=== PATIENT | female | born 1945 | race Caucasian/White ===

== ENCOUNTER 2017-04-04 18:01 | Inpatient (IN) | payer MEDICARE ==
[2017-04-04] MEDS ORDERED: Ondansetron INJ* 2 MG/ML VIAL IV ONE (18:49)
[2017-04-04] MEDS ORDERED: Morphine INJ* 4 MG/ML 1 ML SYRINGE IV ONE (18:49)
[2017-04-04] MEDS ORDERED: NS 0.9% 1000 ML* 1,000 ML IV ONE (18:49)
[2017-04-04 19:10] LABS: Hematocrit 37 % (35-47); Hemoglobin 11.9 g/dl (12.0-16.0); Mean Corpuscular HGB Conc 33 g/dl (31-36); Mean Corpuscular Hemoglobin 29 pg (27-31); Mean Corpuscular Volume 90 fL (80-97); Mean Platelet Volume 8 um3 (7.4-10.4); Red Blood Count 4.06 10^6/ul (4.0-5.4); Red Cell Distribution Width 13 % (10.5-15); White Blood Count 9.7 10^3/ul (3.5-10.8)
[2017-04-04 19:25] LABS: Albumin 3.8 g/dL (3.2-5.2); BUN/Creatinine Ratio 20.4 (8-20); Calcium 9.2 mg/dL (8.6-10.3); EGFR African American 76.9 (>60); EGFR Non-African American 59.8 (>60); Globulin 2.6 g/dL (2-4); Potassium 3.7 mmol/L (3.5-5.0); Total Bilirubin 0.3 mg/dL (0.2-1.0); Total Protein 6.4 g/dL (6.4-8.9)
[2017-04-04] MEDS ORDERED: Morphine INJ* 2 MG/ML 1 ML SYRINGE IV PRN (20:27)
--- NOTE | 2017-04-04 20:41 | RAD ---
Patient: Fall, head injury. CT of the brain was performed without IV contrast. No prior study is available for comparison. Ventricular structures are midline. No midline shift is noted. The extra-axial spaces are unremarkable. There is no evidence of intracranial mass or hemorrhage. No other high or low density lesions are identified. Mastoid air cells and paranasal sinuses are otherwise unremarkable. IMPRESSION: There is no evidence of intracranial mass or hemorrhage present.
--- NOTE | 2017-04-04 20:47 | RAD ---
Indication: Right knee pain. 2 views of the right knee demonstrates right knee replacement in satisfactory position. No definite fractures identified although evaluation is suboptimal. IMPRESSION: Right knee replacement in satisfactory position.
--- NOTE | 2017-04-04 20:47 | RAD ---
Indication: Right hip pain after fall. Single view of the pelvis demonstrates a fracture through the neck of the right femur with overriding and foreshortening of the fracture fragments. Pelvic ring is otherwise intact. Left hip and femur appear intact. IMPRESSION: Fracture neck of the right femur with overriding of the fracture fragments.
--- NOTE | 2017-04-04 20:48 | RAD ---
Indication: Preop chest x-ray. Single frontal view of the chest performed at 2010 hours was reviewed. No prior study is available. No mediastinal shift is noted. Heart is of normal size and configuration. Lung singletary appear clear. IMPRESSION: NO ACTIVE CARDIOPULMONARY DISEASE IS NOTED.
--- NOTE | 2017-04-04 21:02 | ED ---
Dayo Diaz Salem, scribed for Bailey Rachel MD on 04/04/17 at 1928 . Lower Extremity - HPI Summary HPI Summary: Patient is a 71 y/o F who presents to the ED s/p a fall earlier today. She states that she tripped over uneven sidewalk while walking her dog and landed on her right side. She also states that she mildly hit her head. She reports right hip pain, but no other sx. Pt recently had a right knee replacement. - History of Current Complaint Chief Complaint: EDExtremityLower Stated Complaint: R HIP PAIN Time Seen by Provider: 04/04/17 18:21 Hx Obtained From: Patient Mechanism Of Injury: Fall From A Standing Position Onset of Pain: Immediate Onset/Duration: Hours Severity Initially: Moderate Severity Currently: Moderate Pain Intensity: 6 Pain Scale Used: 0-10 Numeric Timing: Constant Location: Is Discrete @ - Right hip. Character Of Pain: Sharp Associated Signs And Symptoms: Positive: Negative Aggravating Factor(s): Ambulation, Movement Alleviating Factor(s): Rest Able to Bear Weight: No - Allergies/Home Medications Allergies/Adverse Reactions: Allergies Allergy/AdvReac Type Severity Reaction Status Date / Time No Known Allergies Allergy Verified 04/04/17 19:11 PMH/Surg Hx/FS Hx/Imm Hx Previously Healthy: Yes - Surgical History Surgery Procedure, Year, and Place: None. Infectious Disease History: No Infectious Disease History: Denies: Traveled Outside the [place] in Last 30 Days - Family History Known Family History: Negative: Hypertension - Social History Alcohol Use: Rare Substance Use Type: Reports: None Smoking Status (MU): Never Smoked Tobacco Review of Systems Negative: Fever Positive: Other - Right hip pain. All Other Systems Reviewed And Are Negative: Yes Physical Exam Triage Information Reviewed: Yes Vital Signs On Initial Exam: Initial Vitals Temp Pulse Resp BP Pulse Ox 97.7 F 87 20 131/74 98 04/04/17 18:02 04/04/17 18:02 04/04/17 18:02 04/04/17 18:02 04/04/17 18:02 Vital Signs Reviewed: Yes Appearance: Positive: Well-Appearing Skin: Positive: Warm, Skin Color Reflects Adequate Perfusion, Dry Eyes: Positive: EOMI, JENNA Neck: Positive: Supple, Nontender Respiratory/Lung Sounds: Positive: Clear to Auscultation, Breath Sounds Present. Negative: Rales, Rhonchi, Wheezes Cardiovascular: Positive: RRR. Negative: Murmur, Rub Abdomen Description: Positive: Nontender, Soft. Negative: Distended, Guarding Musculoskeletal: Positive: Other - Hip externally rotated. Tender to proximal femur. Neurological: Positive: Sensory/Motor Intact, Alert, Oriented to Person Place, Time, CN Intact II-III Psychiatric: Positive: Affect/Mood Appropriate - [place] Coma Scale Coma Scale Total: 15 Diagnostics - Vital Signs Vital Signs Temp Pulse Resp BP Pulse Ox 04/04/17 19:11 18 04/04/17 18:09 84 98 04/04/17 18:02 97.7 F 87 20 131/74 98 - Laboratory Lab Results: Lab Results 04/04/17 04/04/17 Range/Units 19:00 19:00 WBC 9.7 (3.5-10.8) 10^3/ul RBC 4.06 (4.0-5.4) 10^6/ul Hgb 11.9 L (12.0-16.0) g/dl Hct 37 (35-47) % MCV 90 (80-97) fL MCH 29 (27-31) pg MCHC 33 (31-36) g/dl RDW 13 (10.5-15) % Plt Count 192 (150-450) 10^3/ul MPV 8 (7.4-10.4) um3 Neut % (Auto) 76.8 (38-83) % Lymph % (Auto) 15.8 L (25-47) % [place] % (Auto) 5.7 (1-9) % Eos % (Auto) 1.1 (0-6) % Baso % (Auto) 0.6 (0-2) % Absolute Neuts (auto) 7.5 (1.5-7.7) 10^3/ul Absolute Lymphs (auto) 1.5 (1.0-4.8) 10^3/ul Absolute Monos (auto) 0.6 (0-0.8) 10^3/ul Absolute Eos (auto) 0.1 (0-0.6) 10^3/ul Absolute Basos (auto) 0.1 (0-0.2) 10^3/ul Absolute Nucleated RBC 0 10^3/ul Nucleated RBC % 0 INR (Anticoag Therapy) 0.95 (0.89-1.11) Result Diagrams: 04/04/17 19:00 04/04/17 19:00 Lab Statement: Any lab studies that have been ordered have been reviewed, and results considered in the medical decision making process. - Radiology FEMUR RIGHT Radiology Interpretation Completed By: Radiologist - IMPRESSION: see EMR pending KNEE RIGHT Radiology Interpretation Completed By: Radiologist - IMPRESSION: Right knee replacement in satisfactory position. PELVIS RIGHT Radiology Interpretation Completed By: Radiologist - IMPRESSION: Fracture neck of the right femur with overriding of the fracture fragments. CXR Radiology Interpretation Completed By: Radiologist - IMPRESSION: NO ACTIVE CARDIOPULMONARY DISEASE IS NOTED. - CT BRAIN CT Interpretation Completed By: Radiologist - IMPRESSION: There is no evidence of intracranial mass or hemorrhage present. - EKG 2021 EKG Interpretation: NSR @ 70 bpm. Nml. Re-Evaluation - Re-Evaluation First Eval Re-Evaluation Time: 20:16 Comment: Discussed imaging results. Lower Extremity Course/Dx - Course Course Of Treatment: 71 yo female with no medical problems with right femoral neck fracture. Case discussed with Dr. Evans who admitted the pt - Diagnoses Provider Diagnoses: Hip fracture, right - Physician Notifications Discussed Care Of Patient With: Juan José Evans Time Discussed With Above Provider: 20:25 Instructed by Provider To: Admit As Inpatient Admit/Transition Orders Completed By ED Provider: Yes Discharge - Discharge Plan Condition: Stable Disposition: ADMITTED TO [facility] Referrals: Non Staff,Doctor [Primary Care Provider] - The documentation as recorded by the Dayo hall Salem accurately reflects the service I personally performed and the decisions made by me, Bailey Rachel MD.
--- NOTE | 2017-04-04 21:41 | RAD ---
Indication: Right femur injury, hip fracture. 2 views of the right femur demonstrates no fracture of the femur other than the known fracture neck of the right. Diaphysis is intact. IMPRESSION: Right femoral neck fracture.
[2017-04-04] MEDS ORDERED: Morphine INJ* 2 MG/ML 1 ML SYRINGE ONE (21:57)
[2017-04-04] MEDS ORDERED: Buffered Lidocaine 0.9% SYRIN* 5 ML/SYR SYRINGE INTRADERM ONE (22:19)
[2017-04-05] MEDS ORDERED: NS 0.9% 1000 ML* 1,000 ML IV SCH
--- NOTE | 2017-04-05 03:18 | CONS ---
CONSULTATION REPORT: DATE OF CONSULTATION: 04/04/17 HISTORY AND PHYSICAL ATTENDING: Juan José Evans MD CHIEF COMPLAINT: Right hip pain. HISTORY OF PRESENT ILLNESS: Briefly, Magdalena Centeno is a 71-year-old otherwise healthy female, who sustained a mechanical fall. She was walking on a side walk and tripped landing on her right side. She also had a recent history of a total knee replacement that was done in December of this year in [facility]. She was here for recovery purposes and is also living close to her daughter. She had a recent right knee replacement in 2017 in [facility]. She was recently moved here to live with her mother and near her daughter who recently graduated from law school. She was walking without any assistive devices with her dog and then she landed awkwardly, she could not weight bear. She was brought to the ER and diagnosed with a displaced femoral neck fracture. She denies any numbness or tingling. No fevers or chills. PAST MEDICAL HISTORY: Negative. PAST SURGICAL HISTORY: Significant for ORIF of ankle and total knee replacement in December 2016 as well as tonsillectomy. MEDICATIONS: None. ALLERGIES: None. SOCIAL HISTORY: She is community ambulator. She denies tobacco and drinks alcohol rarely. She is recovering from a total knee replacement, was going to start riding her bike. She lives with her 92-year-old mother and 3 blocks away from her daughter who recently graduated from law school. FAMILY HISTORY: Negative. She lives with her 92-year-old, otherwise healthy mother. REVIEW OF SYSTEMS: Negative for fevers or chills, numbness, tingling. No chest pain, no shortness of breath. Otherwise, she is a community ambulator. She did have a recent total knee arthroplasty. She has no history of blood clots, problems with anesthesia. PHYSICAL EXAMINATION: General: She is no acute distress. She is well- developed, well-nourished. She is alert and oriented x3. She has pleasant mood and normal affect. EOMI. Chest: Clear to auscultation. Heart: Regular rate and rhythm. Abdomen: Soft. Examination of the right hip demonstrates the skin is intact. There is no erythema or warmth. The leg is externally rotated and shortened. Her examination of the knee demonstrates no effusion, well- healed incisions. Her calf is soft and nontender. She is sensate to light touch about the first dorsal webspace medial, dorsal and plantar foot. She has 2+ PT and DP pulse. She is able to flex and extend her toes. IMAGING: X-rays were reviewed that demonstrates no arthritis. A displaced femoral neck fracture, well positioned knee replacement with no evidence of lucency. Head CT was done that was found to be negative. LABORATORY DATA: White blood cell count 9.7, hematocrit 37, platelet count 192. INR 0.95. Sodium is 139, potassium 3.7, chloride 106, carbon dioxide 25, BUN 19, creatinine 0.93, glucose 134, calcium 9.2. AST and ALT are within normal limits. ASSESSMENT AND PLAN: She has a displaced femoral neck fracture. She is 71 years old, otherwise healthy female. She has no previous history of hip pain, but she is very young. Her mother is 92 years old and she is very healthy. We talked about options. I did mention that total hip replacement is an option especially she had previous hip pain. I am concerned because her mother is still alive and healthy and there is an option of treating her with a total hip replacement. I did talk to her about doing a right hip hemiarthroplasty, but I am going to confirm with my partners to find out if they would be willing to do a total hip. We reviewed the risks and benefits of surgery versus nonoperative treatment. Risks included but are not limited to bleeding, infection, damage to nerves, vessels, surrounding structures, wound not healing, persistent pain, need for further surgery, risks of anesthesia, scarring, persistent pain, risk of DVT, risks of anesthesia, risk of dislocation, fracture and need for further surgery. We will plan for hemiarthroplasty in the morning unless the patient would like to proceed with a total hip replacement. [id number]/[facility] #: [id number] MTDD
[2017-04-05] MEDS ORDERED: ceFAZolin 2 GM PREMIX(*) 2 GM/50 ML BAG IVPB ONE (07:00)
--- NOTE | 2017-04-05 09:02 | PN ---
Progress Note - Progress Note Note: pt seen in prean. comfortable. family at bedside. no complaints overnight. Temp Pulse Resp BP Pulse Ox 98.6 F 55 15 111/58 100 04/05/17 07:29 04/05/17 07:29 04/05/17 07:29 04/05/17 07:29 04/05/17 07:29 NAD. AAOx3. comfortable. RLE: skin intact. leg externally rotated and shortened. SILT grossly distally. 2+ PT pulse. calf soft, nontender. Laboratory Results - last 24 hr 04/04/17 04/04/17 04/04/17 19:00 19:00 19:00 WBC 9.7 RBC 4.06 Hgb 11.9 L Hct 37 MCV 90 MCH 29 MCHC 33 RDW 13 Plt Count 192 MPV 8 Neut % (Auto) 76.8 Lymph % (Auto) 15.8 L [place] % (Auto) 5.7 Eos % (Auto) 1.1 Baso % (Auto) 0.6 Absolute Neuts (auto) 7.5 Absolute Lymphs (auto) 1.5 Absolute Monos (auto) 0.6 Absolute Eos (auto) 0.1 Absolute Basos (auto) 0.1 Absolute Nucleated RBC 0 Nucleated RBC % 0 INR (Anticoag Therapy) 0.95 Sodium 139 Potassium 3.7 Chloride 106 Carbon Dioxide 25 Anion Gap 8 BUN 19 Creatinine 0.93 Est GFR ( Amer) 76.9 Est GFR (Non-Af Amer) 59.8 BUN/Creatinine Ratio 20.4 H Glucose 134 H Calcium 9.2 Total Bilirubin 0.30 AST 19 ALT 16 Alkaline Phosphatase 46 Total Protein 6.4 Albumin 3.8 Globulin 2.6 Albumin/Globulin Ratio 1.5 Blood Type Antibody Screen 04/04/17 19:00 WBC RBC Hgb Hct MCV MCH MCHC RDW Plt Count MPV Neut % (Auto) Lymph % (Auto) [place] % (Auto) Eos % (Auto) Baso % (Auto) Absolute Neuts (auto) Absolute Lymphs (auto) Absolute Monos (auto) Absolute Eos (auto) Absolute Basos (auto) Absolute Nucleated RBC Nucleated RBC % INR (Anticoag Therapy) Sodium Potassium Chloride Carbon Dioxide Anion Gap BUN Creatinine Est GFR ( Amer) Est GFR (Non-Af Amer) BUN/Creatinine Ratio Glucose Calcium Total Bilirubin AST ALT Alkaline Phosphatase Total Protein Albumin Globulin Albumin/Globulin Ratio Blood Type AB Negative Antibody Screen Negative A/P 71 yo F with displaced right femoral neck fracture bedrest npo for OR plan for right hip hemiarthroplasty today ancef oncall to OR.
[2017-04-05] MEDS ORDERED: Bupivacaine 0.5% SDV PF* 30 ML VIAL ONE ×2 (09:47→09:53)
[2017-04-05] MEDS ORDERED: fentaNYL* 50 MCG/ML 2 ML VIAL (100 MCG VIAL) ONE (09:51)
[2017-04-05] MEDS ORDERED: KETAMINE HCL* 50 MG/ML 10 ML VIAL ONE (09:51)
[2017-04-05] MEDS ORDERED: Midazolam* 1 MG/ML 2 ML VIAL (2 MG) ONE ×2 (09:51→10:24)
[2017-04-05] MEDS ORDERED: Morphine PF AMP (0.5MG/ML)* 5 MG/10 ML AMP ONE (09:51)
[2017-04-05] MEDS ORDERED: diPHENhydraMINE IV* 50 MG/ML 1 ml VIAL (BENADRYL) ONE (09:53)
[2017-04-05] MEDS ORDERED: Famotidine IV* 10 MG/ML 2 ML (20 mg) ONE (10:32)
[2017-04-05] MEDS ORDERED: Lidocaine 2% PF * 5 ML VIAL ONE (10:32)
[2017-04-05] MEDS ORDERED: Dexamethasone IV* 4 MG/ML 1 ML (4 MG) ONE (10:32)
[2017-04-05] MEDS ORDERED: Propofol* 10 MG/ML 20 ML BTL IV PUSH ONE (10:32)
[2017-04-05] MEDS ORDERED: EPHEDrine (Pressors)* 50 MG/ML VIAL ONE (10:46)
[2017-04-05] MEDS ORDERED: Hetastarch in NS* 500 ML IV ONE (10:57)
[2017-04-05] MEDS ORDERED: Ondansetron INJ* 2 MG/ML VIAL IV PRN ×2 (11:30→11:35)
[2017-04-05] MEDS ORDERED: DiMENhydriNATE IV* 50 MG/ML VIAL IV PUSH PRN (11:30)
[2017-04-05] MEDS ORDERED: fentaNYL* 50 MCG/ML 2 ML VIAL (100 MCG VIAL) IV PRN (11:30)
[2017-04-05] MEDS ORDERED: PROCHLORPERAZINE INJ 5 MG/ML 2 ML VIAL IV PRN (11:35)
[2017-04-05] MEDS ORDERED: Scopolomine PATCH Remove* 1 NOTE MISC PATCH OFF PRN (11:35)
[2017-04-05] MEDS ORDERED: diPHENhydraMINE IV* 50 MG/ML 1 ml VIAL (BENADRYL) IV PRN (11:35)
[2017-04-05] MEDS ORDERED: Nalbuphine* 20 MG/ML 1 ML VIAL IV PRN (11:35)
[2017-04-05] MEDS ORDERED: Scopolamine 1.5 mg* PATCH TRANSDERM PRN (11:35)
[2017-04-05] MEDS ORDERED: Naloxone* 0.4 MG/ML 1 ML VIAL IV PRN (11:35)
[2017-04-05] MEDS ORDERED: Ketorolac INJ* 30 MG/ML 1 ML VIAL ONE (12:02)
--- NOTE | 2017-04-05 14:02 | RAD ---
Indication: Right femoral neck fracture. 2 views of the right femur and AP view of the pelvis demonstrates right hip replacement in satisfactory position. Pelvic ring is intact. IMPRESSION: Right hip replacement in satisfactory position.
--- NOTE | 2017-04-05 14:07 | PN ---
Progress Note - Progress Note Note: postop note: pt seen and examined. comfortable. denies significant pain Temp Pulse Resp BP Pulse Ox 99.0 F 83 16 113/64 96 04/05/17 12:46 04/05/17 14:02 04/05/17 14:02 04/05/17 14:02 04/05/17 14:02 NAD. RLE: dressing in place. calf soft. Sensate to light touch about 1st dws, medial, lateral, plantar, and dorsal foot. 2+ PT pulse. A/P POD#0 from R hip lianne. Doing well. Xrays reviewed and are acceptable. DVT ppx to begin tomorrow post op abx. dispo pending. WBAT d/c rafaela POD1
[2017-04-05] MEDS: Acetaminophen TAB* 325 MG PO SCH ×3 (15:53→20:06)
[2017-04-05] MEDS: ceFAZolin VIAL(*) 1 GM in NS 0.9% 50 ML* 50 ML IVPB SCH ×2 (16:32→22:19)
[2017-04-06] MEDS: Acetaminophen TAB* 325 MG PO SCH (00:08)
--- NOTE | 2017-04-06 03:54 | OP ---
DATE OF SURGERY: 04/05/17 - ROOM #348 DATE OF : 49 ATTENDING SURGEON: Juan José Evans MD ECONOMIC DEVELOPMENT DIRECTOR: JUAN Jamison. An assistant production editor was needed for the entirety of the case to help with positioning, retraction, and was utilized throughout all portions of the case. ANESTHESIOLOGIST: Annie Garzon MD ANESTHESIA: Spinal with monitored anesthesia care. PRE-OP DIAGNOSIS: Right hip displaced femoral neck fracture. POST-OP DIAGNOSIS: Right hip displaced femoral neck fracture. OPERATIVE PROCEDURE: Right hip hemiarthroplasty. COMPLICATIONS: None. ESTIMATED BLOOD LOSS: 200 cc. IMPLANTS USED: Vestal size 47 bipolar head with a size 2.5 Accolade stem. URINE OUTPUT: Per anesthesia records. INDICATIONS: Magdalena Centeno is a 71-year-old female who sustained a mechanical fall last evening. She is otherwise healthy and has no medical problems. She was diagnosed with a displaced femoral neck fracture. After discussion of the risks and benefits, operative versus nonoperative treatment, and the different types of operative treatment; she has elected to proceed with right hip hemiarthroplasty. She has no previous history of right hip pain. She was recently recovered from the right total knee operation. Risks and benefits were discussed at length, which include but were not limited to bleeding, infection, damage to nerves, vessels, surrounding structures, wound nonhealing, persisted pain, need for further surgery; fracture, dislocation, risk of conversion to a total hip, persisting groin pain, DVT, and risk of anesthesia, and she has elected to proceed. DESCRIPTION OF PROCEDURE: The patient was greeted in the preoperative area by the attending surgeon. Correct extremity was marked and consent was confirmed. The patient was then brought back to the operating suite, where she was placed in supine position on the operating table. She was then transferred to the right side, where a spinal was placed by the anesthesiologist. After which she was placed in the left lateral decubitus position with all bony prominences padded. She was secured using the Villanueva device. The right hip and leg was prepped and draped in the usual sterile fashion beginning with chlorhexidine, soap scrub, and alcohol wipe and a final prep with ChloraPrep. After appropriate surgical pause indicating site, side, procedure, and administration of antibiotics; the standard posterior incision was made along the hip. The soft tissues were carefully dissected to expose the facial layer. The facia was then sharply excised and there was abundant bursa that was present. This was carefully swept away using the lap pad. As the bursa was cleared, any excess was removed using electrocautery device. The hip was placed in gentle external rotation and external rotators were identified. It appeared to be partially damaged from the injury. These were then tagged for later closure and these were carefully released with stay sutures placed and tension on the tissue and gentle external rotation of the hip. The neck was then identified. The capsule was then sharply incised what was remaining of it for a later closure as well. The femoral neck fracture was identified. Then with the hip parallel to the ground and exposed pressure of the neck, a neck cut was made approximately at least a centimeter from the end of the lesser trochanter. Once this was made, the excess bone was removed and using the C- elevator, the femur was then placed back on the table and gently moved anteriorly to expose the cup with gentle retraction on the femur. The soft tissue was carefully dissected. The hips was used to expose and the acetabulum was identified. The femoral head was then removed carefully using a cork-screw device. Once this was done, it was taken to back table and measured by the surgical specialist, it was found to be about 46 mm. Excess ligamentum was then removed from the cup. The cup apparently did not appear to have hardly any degenerative changes. The head also had minimal degenerative changes. At this point, different sizing devices were placed and once the appropriate fit was identified, it was found to be size 47 mm with an appropriate amount of shuck, it was chosen. Next, the attention was directed to the femur. With the hip externally rotated and the femoral neck exposed, the excess tissues from the released external rotators were then removed. The box cut guide was used to begin the starting port more laterally. The canal finder was then used to find the canal. The sequential reaming and rasping were done in sequence until a size 2.5 rasp was placed with excellent purchase. At this point, the trial component was brought to the field. The hip was then gently reduced and was found to have a good fit. It was taken through range of motion with no tightness in extension. The hip was brought to 90 degrees and about to 45 degrees of external rotation and it remained stable. The limb lengths were checked through the drapes and found to be acceptable or similar to the other extremity. This was taken through range of motion several times and found to be stable. At this point, the implants were chosen. The hip was gently dislocated. The stem was then checked and found to have a good fit. It was carefully co-planed to make sure there is no excess bone. The trial implants were removed and then final implants were chosen. These were then placed with impaction to have a good fit. The Bipolar head was placed 28 mm and then the 47 mm final head was final head was placed with a good purchase. The hip was then relocated gently and taken through range of motion again and the stability was the same as prior to removal of the trial. The wounds were then copiously irrigated. The drill holes were placed at the trochanter for closure of the previously tagged external rotators and capsule. These were then closed with a good purchase. The wound was copiously irrigated again. The facial area was closed with 0 Vicryl and the wounds were irrigated one last time and the subcutaneous tissue was closed with 2-0 Vicryl and the skin with 3-0 Monocryl. Sterile dressings were applied. The wound was injected with 0.5% Marcaine plain. She was then awoken from anesthesia and placed in abduction pillow. POSTOPERATIVE PLAN: She will be weightbearing as tolerated. She will have to observe hip precautions for approximately 6 weeks. She will be placed on IV antibiotics for 24 hours postoperative. She will be on DVT prophylaxis for 6 weeks postoperatively. I will see the patient back in office in 10 to 14 days and she would like to be in the hospital for another 2 days prior to discharge to other nursing facility or home with services. Postoperative x-rays will be taken in the PACU to check alignment and position. CC: VALERIANO [id number]/[facility] #: [id number] JOCELYNN
[2017-04-06] MEDS: ceFAZolin VIAL(*) 1 GM in NS 0.9% 50 ML* 50 ML IVPB SCH (04:08)
[2017-04-06 06:37] LABS: Hematocrit 26 % (35-47); Hemoglobin 8.8 g/dl (12.0-16.0)
[2017-04-06 06:54] LABS: Albumin 2.5 g/dL (3.2-5.2); BUN/Creatinine Ratio 14.3 (8-20); Calcium 7.8 mg/dL (8.6-10.3); EGFR African American 95.6 (>60); EGFR Non-African American 74.3 (>60); Globulin 1.9 g/dL (2-4); Potassium 3.7 mmol/L (3.5-5.0); Total Bilirubin 0.3 mg/dL (0.2-1.0); Total Protein 4.4 g/dL (6.4-8.9)
[2017-04-06] MEDS: Ondansetron INJ* 2 MG/ML VIAL IV PRN ×2 (07:41→14:16)
--- NOTE | 2017-04-06 09:10 | PN ---
Progress Note - Progress Note SOAP: Subjective: []Patient seen OOB in chair. Vomited this am, feels better, nausea abated. Urine output running low so IV fluids still running, russo to come out later if output improves. Pale but denies dizziness, CP. Her pain level is very low, she is not taking anything for pain. Objective: [] Vital Signs Temp 99.7 F 04/06/17 07:42 Pulse 97 04/06/17 07:42 Resp 18 04/06/17 08:00 BP 107/57 04/06/17 07:42 Pulse Ox 93 04/06/17 08:00 Intake & Output 04/05/17 04/06/17 04/06/17 18:59 06:59 18:59 Intake Total 3245 2425 Output Total 1050 725 0 Balance 2195 1700 0 Intake: IV Fluids 2385 1570 LR 2385 1570 IVPB 55 LR 55 Oral 860 800 Output: Urine 0 Russo 1050 725 0 Laboratory Results - last 24 hr 04/06/17 04/06/17 06:24 06:24 Hgb 8.8 L Hct 26 L Sodium 133 Potassium 3.7 Chloride 105 Carbon Dioxide 24 Anion Gap 4 BUN 11 Creatinine 0.77 Est GFR ( Amer) 95.6 Est GFR (Non-Af Amer) 74.3 BUN/Creatinine Ratio 14.3 Glucose 112 H Calcium 7.8 L Total Bilirubin 0.30 AST 14 ALT 8 Alkaline Phosphatase 31 L Total Protein 4.4 L Albumin 2.5 L Globulin 1.9 L Albumin/Globulin Ratio 1.3 Right hip dressing remains dry and intact calf non tender and soft +DF/PF right ankle sensation intact distally Assessment: []s/p Right hip hemiarthroplasty for femoral neck fracture POD #1 Plan: []PT/OT WBAT RLE Start Lovenox today Probable discharge home 1-2 days if manages stairs in therapy
[2017-04-06] MEDS: Enoxaparin(*) 30 MG/0.3 ML SYR SUBCUT SCH (11:00)
[2017-04-06] MEDS: oxyCODONE TAB* 5 MG TAB PO PRN (14:14)
--- NOTE | 2017-04-06 15:06 | PN ---
Progress Note - Progress Note Note: POD#1 from R hip lianne Nausea and emesis overnight. Poor appetite. Pain controlled. Denies numbness or tingling. Temp Pulse Resp BP Pulse Ox 99.0 F 100 18 108/55 95 04/06/17 11:21 04/06/17 11:21 04/06/17 14:14 04/06/17 11:21 04/06/17 11:21 NAD. RLE: dressing in place. calf soft, nontender. able to df/pf foot. flex/ext toes. Sensate to light touch along 1st dws, medial, lateral, dorsal, and plantar foot. brisk cap refill. Laboratory Results - last 24 hr 04/06/17 04/06/17 06:24 06:24 Hgb 8.8 L Hct 26 L Sodium 133 Potassium 3.7 Chloride 105 Carbon Dioxide 24 Anion Gap 4 BUN 11 Creatinine 0.77 Est GFR ( Amer) 95.6 Est GFR (Non-Af Amer) 74.3 BUN/Creatinine Ratio 14.3 Glucose 112 H Calcium 7.8 L Total Bilirubin 0.30 AST 14 ALT 8 Alkaline Phosphatase 31 L Total Protein 4.4 L Albumin 2.5 L Globulin 1.9 L Albumin/Globulin Ratio 1.3 A/P POD#1 from R hip lianne WBAT doing well aside from nausea analgesia HCT 26 will follow. dvt ppx- lovenox for 6 weeks post op. possible discharge to PMRU tomorrow dressing to be changed tomorrow. f/u in 2 weeks with me
[2017-04-06] MEDS: Acetaminophen TAB* 325 MG PO PRN (20:44)
[2017-04-07] MEDS ORDERED: Magnesium Hydroxide LIQ* 30 ML UDC PO PRN (09:26)
[2017-04-07] MEDS ORDERED: Docusate CAP* 100 MG PO PRN (09:27)
[2017-04-07 09:29] LABS: Hematocrit 27 % (35-47); Mean Corpuscular HGB Conc 33 g/dl (31-36); Mean Corpuscular Hemoglobin 30 pg (27-31); Mean Corpuscular Volume 90 fL (80-97); Mean Platelet Volume 9 um3 (7.4-10.4); Red Blood Count 3.02 10^6/ul (4.0-5.4); Red Cell Distribution Width 13 % (10.5-15); White Blood Count 10.1 10^3/ul (3.5-10.8)
[2017-04-07] MEDS: Enoxaparin(*) 30 MG/0.3 ML SYR SUBCUT SCH (09:34)
[2017-04-07] MEDS: oxyCODONE TAB* 5 MG TAB PO PRN ×2 (09:35→23:32)
[2017-04-07] MEDS: Ondansetron INJ* 2 MG/ML VIAL IV PRN ×2 (09:37→20:16)
[2017-04-07 09:43] LABS: EGFR African American 98.5 (>60); EGFR Non-African American 76.6 (>60); Potassium 3.7 mmol/L (3.5-5.0)
--- NOTE | 2017-04-07 09:44 | PN ---
Progress Note - Progress Note SOAP: Subjective: []Patient seen at bedside. States she felt a little dizzy earlier but feels ok now. Denies SOB or CP. Bed reportedly available this afternoon at [facility]. Objective: [] Vital Signs Temp 99.4 F 04/07/17 07:36 Pulse 98 04/07/17 07:36 Resp 18 04/07/17 09:35 BP 112/63 04/07/17 07:36 Pulse Ox 95 04/07/17 08:00 Intake & Output 04/06/17 04/07/17 04/07/17 18:59 06:59 18:59 Intake Total 1015 860 Output Total 1700 1200 Balance -685 -340 Intake: IVPB 365 LR 365 Oral 650 860 Output: Urine 1300 1200 Leija 400 Other: # Bowel Movements 0 Right hip dressings were removed. Moderate bloody drainage on 4x4s Incision/ steri strips are intact wound healing well calf remains non tender and soft +DF/PF right ankle new 4x4s and tape applied to Right hip incision Assessment: []s/p right hip hemiarthroplasty for femoral neck fracture POD #2 constipation Plan: []check Hbg/ Hct- pending bowel meds ordered Probable discharge to [facility] later today
[2017-04-08] MEDS: oxyCODONE TAB* 5 MG TAB PO PRN ×3 (06:56→15:01)
[2017-04-08] MEDS ORDERED: Hydrocortisone 1% CREAM* 30 GM TUBE TOPICAL PRN (09:44)
[2017-04-08] MEDS ORDERED: Bisacodyl SUPP* 10 MG SUPP PR PRN (09:55)
--- NOTE | 2017-04-08 09:55 | PN ---
Progress Note - Progress Note SOAP: Subjective: []Patient seen at bedside. Her daughter is present. She did well with therapy yesterday and is yet to work with PT this am. She denies dizziness, CP or SOB. She is complaining of some itching on her left forearm from a previous exposure to poison heath prior to admission. She has not yet had a BM despite bowel meds and prune juice this am. She is passing flatus. She hopes she will be able to go home today. Objective: [] Vital Signs Temp 98.5 F 04/08/17 07:40 Pulse 86 04/08/17 07:40 Resp 15 04/08/17 07:40 BP 98/58 04/08/17 07:40 Pulse Ox 97 04/08/17 07:40 Intake & Output 04/07/17 04/08/17 04/08/17 18:59 06:59 18:59 Intake Total 900 900 240 Output Total 1100 950 400 Balance -200 -50 -160 Intake: Oral 900 900 240 Output: Urine 1100 950 400 Other: # Bowel Movements 0 Right hip incision benign with much less drainage calf NT and soft +DF/PF right foot 2 small, dried, lesions on left forearm from poison heath, no evidence of infection or weepy drainage Assessment: []s/p right hip hemiarthroplasty for femoral neck fx POD #3 Remote exposure to poison heath with mild contact dermatitis Plan: []Continue bowel regimen PT/OT WBAT RLE hydrocortisone topical cream prn itching Home today after BM Lovenox [address] op [address] Evans Follow up in office with her in 10-14 days
[2017-04-08] MEDS ORDERED: Polyethylene Glycol 3350* 17 GM PACKET PO PRN (09:56)
[2017-04-08] MEDS: Enoxaparin(*) 30 MG/0.3 ML SYR SUBCUT SCH (11:10)
[2017-04-08 12:24] VITALS: BP 105/58
[2017-04-08] MEDS: Acetaminophen TAB* 325 MG PO PRN (14:12)
--- NOTE | 2017-04-08 21:47 | DS ---
DISCHARGE SUMMARY: DATE OF ADMISSION: 04/04/17 DATE OF DISCHARGE: 04/08/17 ATTENDING PHYSICIAN: Juan José Evans MD (DICTATED BY JUAN MADDOX) ADMISSION DIAGNOSIS: Displaced right femoral neck fracture. DISCHARGE DIAGNOSIS: Displaced right femoral neck fracture. SURGERY PERFORMED: Right hip hemiarthroplasty. HOSPITAL COURSE: The patient is a 71-year-old otherwise healthy female who recently underwent a right total knee arthroplasty in December in [facility]. She was here for recovery purposes, living close to her daughter when she fell walking her dog and landed on her right hip. She was unable to bear weight and was brought to the emergency department, where x-rays revealed a displaced right femoral neck fracture. She denied other bodily injury and was admitted to the service of Dr. Evans. Options of total hip arthroplasty versus hemiarthroplasty were discussed with the patient and she elected to proceed with hemiarthroplasty. She was taken to the operating room under the care of Dr. Evans on the date of 04/05/17. She tolerated the aforementioned procedure without any complications. She progressed satisfactorily with her physical therapy and occupational therapy goals on the surgical step-down unit. She was evaluated by [facility] here at [facility], but was found to be progressing too well to be a candidate for their rehab program. She was able to master stairs and had been ambulating well. It was felt she was stable medically and orthopedically for discharge to home on the date of 04/08/17. CONDITION ON DISCHARGE: She is afebrile. Her vital signs are stable. Her right hip incision is healing without evidence of infection. Her Steri-Strips are intact and there was scant bloody drainage noted on her dressing today. Her calf is soft and nontender. She has full dorsiflexion and plantarflexion of the right ankle. Her sensation and circulation are intact distally. PLAN: Discharge to home 04/08/17 continuing to bear weight as tolerated on the right lower extremity. She will continue to abide by total hip precautions as reviewed by physical therapy. She is prescribed through the hospital system Roxicodone 5 mg tablets 1 to 2 p.o. q.4 hours p.r.n. pain, #90, zero refills. She is provided with prescription of Lovenox 30 mg subcu q.24 hours x6 weeks, # 45, zero refills. She is also instructed to take Colace 100 mg p.o. b.i.d. while on narcotic pain medications to help prevent constipation. I recommended a followup with Dr. Evans in the office in 10 to 14 days. JUAN MADDOX [id number]/[facility] #: [id number] JOCELYNN
== END 2017-04-08 17:35 | disposition home health service (06) | DRG 470 ==
LOC: ED 18:01 → SSU 20:27
PROVIDERS: ADMIT Orthopaedic Surgery; ATTEND Orthopaedic Surgery
PROC: 0SRR01Z Replacement of Right Hip Joint, Femoral Surface with Metal Synthetic Substitute, Open Approach (ICD-10-PCS; principal; 2017-04-04)
DX: S72.001A Fracture of unspecified part of neck of right femur, initial encounter for closed fracture (principal); L24.7 Irritant contact dermatitis due to plants, except food; Z96.651 Presence of right artificial knee joint; W01.0XXA Fall on same level from slipping, tripping and stumbling without subsequent striking against object, initial encounter; Y93.K1 Activity, walking an animal; Y92.9 Unspecified place or not applicable; R40.2412 Glasgow coma scale score 13-15, at arrival to emergency department; R11.2 Nausea with vomiting, unspecified; L98.9 Disorder of the skin and subcutaneous tissue, unspecified
CPT/HCPCS: 36415; 70450; 71010; 72170; 80048; 80053; 85014; 85018; 85025; 85610; 86850; 86900; 86901; 88305; 88311; 93005; 94760; A9270-GY; C1776; J0690; J1100; J1200; J1650; J1885; J2250; J2270; J2405; J2704; J3010